=== PATIENT | female | born 1990 | race African-American/Black ===

== ENCOUNTER 2018-07-03 13:56 | Inpatient (IN) | payer OTHER ==
[2018-07-03] MEDS ORDERED: NS 0.9% 1000 ML* 2,000 ML IV ONE (14:16)
[2018-07-03] MEDS ORDERED: Ondansetron INJ* 2 MG/ML VIAL IV ONE (14:16)
[2018-07-03] MEDS ORDERED: Diphenoxylat/Atrop 2.5-0.025M* 1 TAB PO ONE (14:18)
--- NOTE | 2018-07-03 14:39 | ED ---
Abdominal Pain/Female - HPI Summary HPI Summary: This patient is a 28 year old F presenting to [facility] accompanied by her friend with a chief complaint of 9/10 upper abd pain since 07/02/18. She endorses N/V/D, with her stool smelling of bile, fever, WAY, lethargy, wealkness, and fatigue. She endorses 1x episode of emesis last night, and that she was able to drink Gatorade and water. She denies hematochezia. She notes her LMP was distant, as she is on continuous Nuvaring control. She denies PMHx ulcers. - History of Current Complaint Chief Complaint: EDFever Stated Complaint: DIARRHEA/FEVER/ Time Seen by Provider: 07/03/18 14:11 Hx Obtained From: Patient Hx Last Menstrual Period: 01/14/16 Continuous control ?: No Onset/Duration: Lasting Hours, Still Present Timing: Constant Severity Initially: Moderate Severity Currently: Severe Pain Intensity: 9 Pain Scale Used: 0-10 Numeric Location: Epigastric Radiates: No Aggravating Factor(s): Nothing Alleviating Factor(s): Nothing Associated Signs and Symptoms: Positive: Fever - 101.2 in ED, Nausea, Vomiting, Diarrhea. Negative: Blood in Stool Allergies/Adverse Reactions: Allergies Allergy/AdvReac Type Severity Reaction Status Date / Time No Known Allergies Allergy Verified 07/03/18 14:01 Home Medications: Home Medications Biotin [Biotin Gummies] 1,000 mcg PO DAILY 07/03/18 [History Confirmed 07/03/18] L.acidoph,Paracasei, B.lactis [Probiotic] 1 each PO DAILY 07/03/18 [History Confirmed 07/03/18] Multivitamin [Daily Multiple Vitamins] 1 tab PO DAILY 07/03/18 [History Confirmed 07/03/18] [place]-3 Fatty Acids/Fish Oil [Fish Oil 1,000 mg Capsule] 1 each PO DAILY [History Confirmed 07/03/18] PMH/Surg Hx/FS Hx/Imm Hx Endocrine/Hematology History: Denies: Hx Diabetes, Hx Thyroid Disease Cardiovascular History: Denies: Hx Hypertension Respiratory History: Denies: Hx Asthma, Hx Chronic Obstructive Pulmonary Disease (COPD) GI History: Denies: Hx Ulcer History: Denies: Hx Dialysis Sensory History: Denies: Hx Legally Blind, Hx Deafness Opthamlomology History: Denies: Hx Legally Blind EENT History: Denies: Hx Deafness Neurological History: Denies: Hx Dementia Psychiatric History: Reports: Hx Anxiety, Hx Depression - Immunization History Date of Tetanus Vaccine: within 8 years per pt Immunizations Up to Date: Yes Infectious Disease History: No Infectious Disease History: Reports: Hx Shingles, Traveled Outside the [place] in Last 30 Days [facility] Denies: Hx Hepatitis, Hx Human Immunodeficiency Virus (HIV), History Other Infectious Disease - Family History Known Family History: Positive: Other - colon cancer, ulcers - Social History Occupation: Student Lives: Dormitory/Roommates Alcohol Use: None Substance Use Type: Reports: None Smoking Status (MU): Never Smoked Tobacco Review of Systems Positive: Fever, Fatigue Positive: Abdominal Pain, Vomiting, Diarrhea, Nausea. Negative: Other - blood in stool Positive: no symptoms reported Positive: Headache, Weakness All Other Systems Reviewed And Are Negative: Yes Physical Exam - Summary Physical Exam Summary: Appearance: Well-appearing, Well-nourished, lying in bed comfortably Skin: Warm, dry, no obvious rash Eyes: sclera anicteric, no conjunctival pallor ENT: mucous membranes moist, pharynx appears normal Neck: Supple, nontender Respiratory: Clear to auscultation, no signs of respiratory distress Cardiovascular: Normal S1, S2. No murmurs. Normal distal pulses in tibial and radial bilaterally. Abdomen: Soft, upper abd tenderness without guarding or rebound, normal active bowel sounds present Musculoskeletal: Normal, Strength/ROM Intact Neurological: A&Ox3, awake and alert, mentation is normal, speech is fluent and appropriate Psychiatric: affect is normal, does not appear anxious or depressed Triage Information Reviewed: Yes Vital Signs On Initial Exam: Initial Vitals Temp Pulse Resp BP Pulse Ox 101.2 F 101 15 106/52 98 07/03/18 13:59 07/03/18 13:59 07/03/18 13:59 07/03/18 13:59 07/03/18 13:59 Vital Signs Reviewed: Yes Diagnostics - Vital Signs Vital Signs Temp Pulse Resp BP Pulse Ox 07/03/18 13:59 101.2 F 101 15 106/52 98 - Laboratory Result Diagrams: 07/06/18 06:44 07/06/18 06:44 Lab Statement: Any lab studies that have been ordered have been reviewed, and results considered in the medical decision making process. - CT A/P CT Interpretation: Positive (See Comments) CT Interpretation Completed By: Radiologist - Findings of acute cholecystitis which can be confirmed with ultrasound. Dr. Bower has reviewed this report. Re-Evaluation - Re-Evaluation First Eval Re-Evaluation Time: 17:41 Change: Improved Comment: Feels slightly better but not much, had diarrhea stool with a little blood in it. Abdominal Pain Fem Course/Dx - Course Course Of Treatment: A 28-year-old F presents to the ED with a CC of 9/10 epigastric abd pain for 1 day. (+) N/V/D, WAY, fever, fatigue, lethargy, weakness. (-) hematochezia. LMP distant due to constant control, no PMHx ulcers, FHx ulcers. Pt was able to drink Gatorade and water. A CT A/P reveals findings of acute cholecystitis which can be confirmed with ultrasound. In the ED course, pt was given nl saline, lomotil, and zofran, morphine, and KCl. - Diagnoses Provider Diagnoses: Gastroenteritis, Cholecystitis - Provider Notifications Discussed Care Of Patient With: Adonis Wen Time Discussed With Above Provider: 19:44 Instructed by Provider To: Other - accepts admission Discharge - Sign-Out/Discharge Documenting (check all that apply): Patient Departure - admit - Discharge Plan Condition: Fair Disposition: ADMITTED TO [facility] - Billing Disposition and Condition Condition: FAIR Disposition: Admitted to [facility] - Attestation Statements Document Initiated by Brock: Yes Documenting Scribe: Román Aponte Provider For Whom Brock is Documenting (Include Credential): Dr. Anam Bower MD Scribe Attestation: Román Underwood scribed for Dr. Anam Bower MD on 07/06/18 at 1143. Scribe Documentation Reviewed: Yes Provider Attestation: The documentation as recorded by the Román wilkinson accurately reflects the service I personally performed and the decisions made by me, Dr. Anam Bower MD
[2018-07-03 14:57] LABS: ABS Basophils 0 10^3/ul (0-0.2); ABS Eosinophils 0 10^3/ul (0-0.6); ABS Lymphocytes 0.9 10^3/ul (1.0-4.8); ABS Monocytes 0.2 10^3/ul (0-0.8); ABS Neutrophils 4.7 10^3/ul (1.5-7.7); ABS Nucleated RBC 0 10^3/ul; Eosinophil % 0 % (0-6); Hematocrit 40 % (35-47); Lymphocyte % 15.8 % (25-47); Mean Corpuscular HGB Conc 35 g/dl (31-36); Mean Corpuscular Hemoglobin 28 pg (27-31); Mean Corpuscular Volume 79 fL (80-97); Mean Platelet Volume 9.5 um3 (7.4-10.4); Nucleated Red Blood Cells % 0.1; Platelet Count 156 10^3/ul (150-450); Red Blood Count 5.07 10^6/ul (4.00-5.40); Red Cell Distribution Width 12 % (10.5-15); White Blood Count 5.9 10^3/ul (3.5-10.8)
[2018-07-03 15:26] LABS: EGFR Non-African American 83.6 (>60)
[2018-07-03] MEDS ORDERED: Morphine VIAL* 4 MG/ML VIAL (1 ml vial) IV ONE ×2 (15:54→19:39)
[2018-07-03] MEDS ORDERED: Potassium Chlor TAB* 20 MEQ TAB.ER PO ONE ×2 (16:07→23:05)
[2018-07-03] MEDS ORDERED: Acetaminophen TAB* 325 MG PO ONE (16:18)
[2018-07-03] MEDS ORDERED: Morphine INJ* 2 MG/ML 1 ML SYRINGE (TWO MG - NEW SYRINGE VERSION) ONE (16:29)
[2018-07-03] MEDS: Morphine INJ* 2 MG/ML 1 ML SYRINGE (TWO MG - NEW SYRINGE VERSION) IV ONE ×2 (16:36→20:00)
[2018-07-03] MEDS ORDERED: Iohexol 300* (CONTRAST) 10 ML SDV IV ONE (20:10)
--- NOTE | 2018-07-03 21:36 | RAD ---
EXAM: CT Abdomen and Pelvis With Intravenous Contrast CLINICAL HISTORY: 28 years old, female; Pain; Abdominal pain; Epigastric; Additional info: Upper abd pain/tenderness, diarrhea TECHNIQUE: Axial computed tomography images of the abdomen and pelvis with intravenous contrast. All CT scans at this facility use at least one of these dose optimization techniques: automated exposure control; mA and/or kV adjustment per patient size (includes targeted exams where dose is matched to clinical indication); or iterative reconstruction. Coronal and sagittal reformatted images were created and reviewed. CONTRAST: 79 mL of OMNIPAQUE 300 administered intravenously. COMPARISON: No relevant prior studies available. FINDINGS: Lung bases: Normal. No mass. No consolidation. ABDOMEN: Liver: Normal. No masses. Portal and hepatic veins are patent. Gallbladder and bile ducts: Circumferentially thickwalled gallbladder with associated moderate pericholecystic stranding. No radiopaque calculi. Pancreas: Normal. No mass. No ductal dilation. Spleen: Normal. No splenomegaly. Adrenals: Normal. No mass. Kidneys and ureters: Normal. No solid mass. Stomach and bowel: Incompletely distended grossly normal stomach. Normal caliber small bowel. No colonic masses or segmental wall thickening. PELVIS: Appendix: No dilation or periappendiceal inflammation. Bladder: The bladder is decompressed but otherwise normal. Reproductive: Uterus and ovaries are normal. ABDOMEN and PELVIS: Intraperitoneal space: Normal. No pneumoperitoneum. No ascities. Bones/joints: No fractures. No suspicious bone lesions. Soft tissues: Normal. No hernias. Vasculature: Normal caliber aorta with no evidence of dissection or rupture. Patent IVC. Lymph nodes: Normal. No enlarged lymph nodes. IMPRESSION: Findings of acute cholecystitis which can be confirmed with ultrasound.
[2018-07-03 23:39] LABS: EGFR Non-African American 78.1 (>60)
--- NOTE | 2018-07-04 00:05 | RAD ---
EXAM: US Abdomen Limited, Right Upper Quadrant CLINICAL HISTORY: 28 years old, female; Pain; Abdominal pain; Epigastric; Additional info: Gall bladder TECHNIQUE: Real-time ultrasound of the right upper quadrant with image documentation. COMPARISON: A/P W CT ABD/PEL W 07/03/2018 9:11 PM FINDINGS: Liver: Hyperechogenicity of the hepatic portal triads. No focal liver lesions. Normal hepato-pedal portal vein flow. No intrahepatic bile duct dilation. Gallbladder: Markedly thick walled gallbladder measuring up to 0.8 cm. Associated pericholecystic fluid. Layering sludge with no gallstones. No sonographic Reddy's sign. Common bile duct: CBD measures 0.3 cm. Pancreas: Pancreatic head through proximal tail are well visualized showing no focal lesions or main ductal dilation. Distal tail is shadowed by overlying bowel gas. Right kidney: Right kidney measures 10.8 x 5.1 x 4.0 cm (115 cc). Hyperechoic parenchyma. No solid cortical lesions, calculi, or pelvocaliectasis. IMPRESSION: 1. Findings suggesting hepatitis which would correlate with the abnormal gallbladder findings. 2. Renal parenchymal disease.
[2018-07-04] MEDS ORDERED: fentaNYL* 50 MCG/ML 2 ML VIAL (100 MCG VIAL) IV SLOW PU ONE (00:31)
[2018-07-04] MEDS ORDERED: Piperacillin/Tazobac ADVAN(*) 3.375 GM in NS 0.9% 100 ML* 100 ML IVPB ONE (00:31)
--- NOTE | 2018-07-04 00:36 | ED ---
Progress - Progress Note Progress Note: Behzad refused to admit the patient because she is a surgical case due to acute cholecystitis. US revealed sonographic finding of acute cholecystitis. Epigastric tenderness. Given the fact that the patient has nausea, vomiting, diarrhea, and gastroenteritis. Re-Evaluation - Re-Evaluation First Eval Re-Evaluation Time: 17:41 Change: Improved Comment: Feels slightly better but not much, had diarrhea stool with a little blood in it. Course/Dx - Course Course Of Treatment: Behzad refused to admit the patient because she is a surgical case due to acute cholecystitis. US revealed sonographic finding of acute cholecystitis. Epigastric tenderness. Given the fact that the patient has nausea, vomiting, diarrhea, and gastroenteritis. Consult with Dr. Barnes ( surgery) at 0034. He agrees to admit pt for surgery. - Diagnoses Provider Diagnoses: Gastroenteritis, Cholecystitis - Provider Notifications Discussed Care Of Patient With: Justin Barnes Time Discussed With Above Provider: 00:34 Instructed by Provider To: Other - Consult with Dr. Barnes (surgery) at 0034. He agrees to admit pt for surgery. Discharge - Sign-Out/Discharge Documenting (check all that apply): Patient Departure - Admit to [facility] - Discharge Plan Condition: Fair Disposition: ADMITTED TO [facility] Referrals: No Primary Care Phys,NOPCP [Primary Care Provider] - - Attestation Statements Document Initiated by Scribe: Yes Documenting Scribe: Marie Parker Provider For Whom Scribe is Documenting (Include Credential): Masoud Aguayo MD Scribe Attestation: IMarie, scribed for Masoud Aguayo MD on 07/04/18 at 0039.
[2018-07-04] MEDS: Ketorolac INJ* 30 MG/ML 1 ML VIAL IV PRN ×2 (02:36→08:36)
[2018-07-04] MEDS ORDERED: Acetaminophen TAB* 325 MG PO PRN (02:58)
[2018-07-04] MEDS: HYDROmorphone INJ1* 1 MG/ML SYRINGE IV PRN ×4 (03:17→22:04)
[2018-07-04] MEDS ORDERED: ZOSYN 3.375 GM x ONE DOSE over 30 miuntes IVPB ×2 (03:30)
[2018-07-04 03:40] LABS: ABS Basophils 0 10^3/ul (0-0.2); ABS Eosinophils 0 10^3/ul (0-0.6); ABS Monocytes 0.2 10^3/ul (0-0.8); ABS Neutrophils 6.7 10^3/ul (1.5-7.7); ABS Nucleated RBC 0 10^3/ul; Eosinophil % 0.3 % (0-6); Hematocrit 38 % (35-47); Hemoglobin 13.2 g/dl (12.0-16.0); Lymphocyte % 12.2 % (25-47); Mean Corpuscular HGB Conc 35 g/dl (31-36); Mean Corpuscular Hemoglobin 28 pg (27-31); Mean Corpuscular Volume 80 fL (80-97); Mean Platelet Volume 9.2 um3 (7.4-10.4); Nucleated Red Blood Cells % 0.3; Platelet Count 137 10^3/ul (150-450); Red Blood Count 4.77 10^6/ul (4.00-5.40); Red Cell Distribution Width 12 % (10.5-15)
[2018-07-04 03:57] LABS: EGFR Non-African American 77.1 (>60)
--- NOTE | 2018-07-04 04:44 | HP ---
H&P (Free Text) History and Physical: PCP: [facility] Date/Time: 07/04/2018 0330 CC: abdominal pain, fever HPI: Ms Reyes is a 28YO female HX depression who reports changing to a 'raw' diet a week ago. Midday she experienced the gradual onset of abdominal 'gassiness' progressing to generalized abdominal pain associated with fever 102.4F and mucousy diarrhea which she noticed had regan blood mixed with it while in the ED today. Stools began as loose and have become more watery. She states she did have an episode of abdominal cramping a few months ago she felt was a side effect of an SSRI whose name she cannot recall and it did resolve after stopping the medication. Additionally, she reports having recurrent nausea and diarrhea as a child associated with greasy foods, but this improved into adulthood. She did spend a [place] [facility] [place] [facility] in the [facility] returning June 17, but has had no known sick contacts. 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 PMedHx depression Ambulatory Orders Biotin [Biotin Gummies] 1,000 mcg PO DAILY 07/03/18 L.acidoph,Paracasei, B.lactis [Probiotic] 1 each PO DAILY 07/03/18 Multivitamin [Daily Multiple Vitamins] 1 tab PO DAILY 07/03/18 [place]-3 Fatty Acids/Fish Oil [Fish Oil 1,000 mg Capsule] 1 each PO DAILY Nuvaring for contraception Allergies No Known Allergies Allergy (Verified 07/03/18 14:01) PSurgHx none SocHx: trivial smoking HX none currently, 3-4 alcoholic drinks months, no recreational drugs; [employer] student of [employer]; lives in a house with 3 roommates; full code status FamHx: Mother: alive at 56YO with "colonic ulcers" (? inflammatory bowel); Father: alive at 60YO with prostate CA; first 1/2 sister: alive with multiple sclerosis; second 1/2 sister: alive with eczema; only full sister: alive with uterine cysts; only brother: 2nd suicide ROS: as above, otherwise reviewed and all were negative vitals: Vital Signs Temp 37.8 C 07/04/18 03:36 Pulse 95 07/04/18 03:36 Resp 24 07/04/18 03:36 BP 100/53 07/04/18 03:36 Pulse Ox 97 07/04/18 03:36 Intake & Output 07/03/18 07/03/18 07/04/18 11:59 23:59 11:59 Intake Total 2099 Balance 2099 Weight 58.967 kg 58.967 kg Intake: IV Fluids 2099 Constitutional: NAD, normally developed, well-nourished black female HEENM: atraumatic; sclera/conjunctiva: anicteric/clear; hearing: clinically intact; oropharynx: clear, mucosa moist Neck: soft tissue: no nuchal rigidity, non-tender; thyroid: normal Pulmonary: clear to auscultation bilaterally, good aeration, no accessory muscle use CV: RR/RR, normal S1S2, no carotid bruit, no jugular venous distention, 2+ B DP/ PT, no edema Abdominal: soft, non-distended, moderately tender primarily in the RUQ and R lateral aspect with voluntary guarding but no rebound/rigidity, hyperactive bowel sounds, clinically gall bladder is ballotable and tender, no costovertebral angle tenderness Musculoskeletal: general: grossly intact, non tender Integumental: normal appearance and texture of exposed skin Psychiatric orientation: AA&O to PPTS affect: fatigued to lethargic mood: pleasant & cooperative eye contact: fair to poor content: reliable memory: intact responses: timely insight: good Testing: Lab Results 07/03/18 07/03/18 07/03/18 Range/Units 14:46 14:46 14:46 WBC 5.9 (3.5-10.8) 10^3/ul RBC 5.07 (4.00-5.40) 10^6/ul Hgb 14.0 (12.0-16.0) g/dl Hct 40 (35-47) % MCV 79 L (80-97) fL MCH 28 (27-31) pg MCHC 35 (31-36) g/dl RDW 12 (10.5-15) % Plt Count 156 (150-450) 10^3/ul MPV 9.5 (7.4-10.4) um3 Neut % (Auto) 80.0 (38-83) % Lymph % (Auto) 15.8 L (25-47) % [place] % (Auto) 3.8 (0-7) % Eos % (Auto) 0 (0-6) % Baso % (Auto) 0.4 (0-2) % Absolute Neuts (auto) 4.7 (1.5-7.7) 10^3/ul Absolute Lymphs (auto) 0.9 L (1.0-4.8) 10^3/ul Absolute Monos (auto) 0.2 (0-0.8) 10^3/ul Absolute Eos (auto) 0 (0-0.6) 10^3/ul Absolute Basos (auto) 0 (0-0.2) 10^3/ul Absolute Nucleated RBC 0 10^3/ul Nucleated RBC % 0.1 ESR Sodium 132 L (135-145) mmol/L Potassium 3.1 L (3.5-5.0) mmol/L Chloride 103 (101-111) mmol/L Carbon Dioxide 20 L (22-32) mmol/L Anion Gap 9 (2-11) mmol/L BUN 9 (6-24) mg/dL Creatinine 0.82 (0.51-0.95) mg/dL Est GFR ( Amer) 101.2 (>60) Est GFR (Non-Af Amer) 83.6 (>60) BUN/Creatinine Ratio 11.0 (8-20) Glucose 119 H (70-100) mg/dL Lactic Acid (0.5-2.0) mmol/L Calcium 8.5 L (8.6-10.3) mg/dL Total Bilirubin (0.2-1.0) mg/dL Direct Bilirubin Indirect Bilirubin AST (13-39) U/L ALT (7-52) U/L Alkaline Phosphatase (34-104) U/L C-Reactive Protein (<8.01) mg/L Total Protein (6.4-8.9) g/dL Albumin (3.2-5.2) g/dL Globulin (2-4) g/dL Albumin/Globulin Ratio (1-3) Amylase (29-103) U/L Lipase (11.0-82.0) U/L Procalcitonin 0.1 (<0.6) ng/mL Beta HCG, Quant < 0.60 mIU/mL 07/03/18 07/04/18 07/04/18 Range/Units 23:09 03:31 03:31 WBC 8.0 (3.5-10.8) 10^3/ul RBC 4.77 (4.00-5.40) 10^6/ul Hgb 13.2 (12.0-16.0) g/dl Hct 38 (35-47) % MCV 80 (80-97) fL MCH 28 (27-31) pg MCHC 35 (31-36) g/dl RDW 12 (10.5-15) % Plt Count 137 L (150-450) 10^3/ul MPV 9.2 (7.4-10.4) um3 Neut % (Auto) 84.2 H (38-83) % Lymph % (Auto) 12.2 L (25-47) % [place] % (Auto) 2.9 (0-7) % Eos % (Auto) 0.3 (0-6) % Baso % (Auto) 0.4 (0-2) % Absolute Neuts (auto) 6.7 (1.5-7.7) 10^3/ul Absolute Lymphs (auto) 1.0 (1.0-4.8) 10^3/ul Absolute Monos (auto) 0.2 (0-0.8) 10^3/ul Absolute Eos (auto) 0 (0-0.6) 10^3/ul Absolute Basos (auto) 0 (0-0.2) 10^3/ul Absolute Nucleated RBC 0 10^3/ul Nucleated RBC % 0.3 ESR Pending Sodium 133 L 132 L (135-145) mmol/L Potassium 3.7 3.6 (3.5-5.0) mmol/L Chloride 107 106 (101-111) mmol/L Carbon Dioxide 18 L 17 L (22-32) mmol/L Anion Gap 8 9 (2-11) mmol/L BUN 7 8 (6-24) mg/dL Creatinine 0.87 0.88 (0.51-0.95) mg/dL Est GFR ( Amer) 94.5 93.3 (>60) Est GFR (Non-Af Amer) 78.1 77.1 (>60) BUN/Creatinine Ratio 8.0 9.1 (8-20) Glucose 87 84 (70-100) mg/dL Lactic Acid (0.5-2.0) mmol/L Calcium 8.0 L 7.9 L (8.6-10.3) mg/dL Total Bilirubin 0.50 Pending (0.2-1.0) mg/dL Direct Bilirubin Pending Indirect Bilirubin Pending AST 19 Pending (13-39) U/L ALT 17 Pending (7-52) U/L Alkaline Phosphatase 32 L Pending (34-104) U/L C-Reactive Protein 122.52 H Pending (<8.01) mg/L Total Protein 6.1 L Pending (6.4-8.9) g/dL Albumin 3.4 Pending (3.2-5.2) g/dL Globulin 2.7 Pending (2-4) g/dL Albumin/Globulin Ratio 1.3 Pending (1-3) Amylase 44 (29-103) U/L Lipase 10 L (11.0-82.0) U/L Procalcitonin (<0.6) ng/mL Beta HCG, Quant mIU/mL 07/04/18 Range/Units 03:31 WBC (3.5-10.8) 10^3/ul RBC (4.00-5.40) 10^6/ul Hgb (12.0-16.0) g/dl Hct (35-47) % MCV (80-97) fL MCH (27-31) pg MCHC (31-36) g/dl RDW (10.5-15) % Plt Count (150-450) 10^3/ul MPV (7.4-10.4) um3 Neut % (Auto) (38-83) % Lymph % (Auto) (25-47) % [place] % (Auto) (0-7) % Eos % (Auto) (0-6) % Baso % (Auto) (0-2) % Absolute Neuts (auto) (1.5-7.7) 10^3/ul Absolute Lymphs (auto) (1.0-4.8) 10^3/ul Absolute Monos (auto) (0-0.8) 10^3/ul Absolute Eos (auto) (0-0.6) 10^3/ul Absolute Basos (auto) (0-0.2) 10^3/ul Absolute Nucleated RBC 10^3/ul Nucleated RBC % ESR Sodium (135-145) mmol/L Potassium (3.5-5.0) mmol/L Chloride (101-111) mmol/L Carbon Dioxide (22-32) mmol/L Anion Gap (2-11) mmol/L BUN (6-24) mg/dL Creatinine (0.51-0.95) mg/dL Est GFR ( Amer) (>60) Est GFR (Non-Af Amer) (>60) BUN/Creatinine Ratio (8-20) Glucose (70-100) mg/dL Lactic Acid 0.4 L (0.5-2.0) mmol/L Calcium (8.6-10.3) mg/dL Total Bilirubin (0.2-1.0) mg/dL Direct Bilirubin Indirect Bilirubin AST (13-39) U/L ALT (7-52) U/L Alkaline Phosphatase (34-104) U/L C-Reactive Protein (<8.01) mg/L Total Protein (6.4-8.9) g/dL Albumin (3.2-5.2) g/dL Globulin (2-4) g/dL Albumin/Globulin Ratio (1-3) Amylase (29-103) U/L Lipase (11.0-82.0) U/L Procalcitonin (<0.6) ng/mL Beta HCG, Quant mIU/mL CT abd/pel W, personally reviewed: IMPRESSION: Findings of acute cholecystitis which can be confirmed with ultrasound. US RUQ: Patient Name: IMPRESSION: 1. Findings suggesting hepatitis which would correlate with the abnormal gallbladder findings. 2. Renal parenchymal disease. Impression: 28F HX depression presenting with atypical abdominal pain, fever, bloody/mucousy stools with CT abd/pel read as acute cholecystitis & RUQ US read as hepatitis w/o confirming finding in labs who has recently travelled to the [facility] and has frequent exposure to potential zoonotic pathogens. As she is septic from an as yet uncertain abdominal process, further monitoring in the ICU is warranted until her disease process can be adequately characterized. Primary differential diagnosis includes acalculous cholecystitis, initial presentation of inflammatory bowel disease, helminthic/amoebic infection, and zoonotic infections. DIAGNOSIS & PLAN Primary sepsis (fever, tachycardia, tachypnea) 2nd unclear abdominal process : primary dDX acalculous cholecystitis vs initial presentation of IBD vs other abdominal infection : check hepatitis profile : consult GI in AM for consideration of colonoscopy to evaluate for IBD : consult infectious disease when available : IVFs : continue IV piperacillin/tazobactam : obtain blood CXs : obtain urinalysis reflexed to CX : obtain stool for ova & parasite analysis : NPO x/ meds w/ sips water : supportive care abnormal R kidney on RUQ US : normal renal function : obtain formal renal US : consider nephrology consultation pending above Secondary depression : no current meds, no acute issues Admission Rational: Inpatient as without the above interventions the risk of impending adverse outcome is unacceptably high; inappropriate for the outpatient setting DVTp: CORINE Code Status: full Critical Care time: 75minutes with >50% spent at the bedside obtaining a history , performing the examination, advising of diagnosis & treatment options along with risks/benefits/reasoning; remainder spent discussing with Orlando Bower MD ED, reviewing with Missael Barnes MD surgery via phone, reviewing labs and radiology exams, recording documentation
[2018-07-04] MEDS: Ondansetron INJ* 2 MG/ML VIAL IV PRN ×2 (05:09→16:30)
[2018-07-04] MEDS ORDERED: ZOSYN 3.375 GM Q8H per EXTENDED INFUSION IVPB SCH ×2 (08:00)
[2018-07-04 09:54] LABS: Urine Appearance Clear; Urine Blood Negative (Negative); Urine Color Yellow; Urine Ketones 2+ (Negative); Urine Protein 1+(30 mg/dL) (Negative); Urine Red Blood Cell Trace(0-2/hpf) (Absent); Urine Specific Gravity 1.047 (1.010-1.030); Urine Urobilinogen Negative (Negative); Urine White Blood Cell Trace(0-5/hpf) (Absent)
[2018-07-04] MEDS: Enoxaparin(*) 40 MG/0.4 ML SYR SUBCUT SCH (10:30)
--- NOTE | 2018-07-04 10:57 | RAD ---
Indication: Abnormal right kidney on right upper quadrant ultrasound. Real-time sonography of the kidneys was performed. The left kidney measures 11.6 x 4.9 x 4.9 cm. No hydronephrosis is noted. IMPRESSION: Unremarkable left kidney.
--- NOTE | 2018-07-04 11:13 | RAD ---
Indication: Dyspnea. 2 views of the chest and straight no mediastinal shift. Heart is of normal size and configuration. Lung casper are clear. IMPRESSION: No active cardiopulmonary disease is noted.
[2018-07-04] MEDS: Ciprofloxacin 400MG IVPREMIX(* 400 MG/200 ML BAG IVPB SCH (15:10)
--- NOTE | 2018-07-04 17:09 | CONS ---
CC: [facility]; [facility] * CONSULTATION REPORT: DATE OF CONSULT: 07/04/18 REASON FOR CONSULT: Abdominal pain and copious diarrhea. HISTORY OF PRESENT ILLNESS: Ms. 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 She had over 30 loose bowel movements, which she described as brown with a small amount of blood early yesterday morning. She had only one episode of vomiting and this was more a retching because she had an empty stomach. She had no fevers, shakes or chills. After the diarrhea had been present, she developed abdominal pain mainly on the right upper and right lower side of her abdomen, which became more severe and she described as crampy. She had no back discomfort. She noted no jaundice. The diarrhea and the pain persisted, she presented initially to the urgent care center yesterday and was transferred to the emergency room for further evaluation last night. When seen in the emergency room, initially she had a temperature of 101, which went up to 103 at its max. She was hemodynamically stable however. She was noted to have tenderness in the epigastrium, right upper and right lower abdomen. There was no noted peritonitis. Laboratory workup included a white blood cell count of 5.9, without bandemia. Her bilirubin, AST and ALT were normal. Her lactic acid was 31 and the C- reactive protein initially of 122. She had a normal lactic acid. Carbon dioxide was low at 20 and had decreased to 17 overnight. Lipase was unremarkable. Urinalysis was also unremarkable. She underwent a CAT scan of her abdomen and pelvis. I did review these images. This showed edematous gallbladder wall with some pericholecystic fluid, but no gallstones. These findings were worrisome for acute cholecystitis and ultrasound was recommended. There also noted was some free intraabdominal fluid. No other acute findings were noted. Ultrasound was also performed. This showed gallbladder wall thickening up to 0.8 cm, some pericholecystic fluid and sludge within the gallbladder. No gallstones. There was no sonographic Reddy's sign. Also noted was hypergenicity of the hepatic portal triads consistent with edema, which is considered nonspecific, but not usually seen with the acute cholecystitis. She was admitted to the hospitalist service in the intensive care unit due to her fever and dehydration and started on IV Zosyn. Surgical consultation has been obtained. The patient did spend almost a month in the [facility]] on a veterinary rotation recently. She does state that she has been trying to eat more fruits and vegetables and a healthier diet in the last several weeks. No one else in her class, family, or roommates have been ill recently. PAST MEDICAL HISTORY: Depression. PAST SURGICAL HISTORY: None. MEDICATIONS: Includes: 1. Biotin. 2. Probiotics. 3. Multivitamins. 4. Ama-3. 5. She has a NuvaRing for contraception. ALLERGIES: She has no known drug allergies. SOCIAL HISTORY: The patient has a history of trivial smoking. She drinks about 3 to 4 alcoholic drinks per month. No recreational drugs. She lives in a house with 3 roommates. REVIEW OF SYSTEMS: Cerebrovascular: No dizziness or visual disturbances. Cardiovascular: No chest pain or shortness of breath. Pulmonary: No wheezing or hemoptysis. GI: As above. : No urgency or hematuria. PHYSICAL EXAM: Temperature 99.4, heart rate 87, blood pressure 99/56. General : She is a slender, well-developed, well-nourished female. She is awake, alert , and conversive and quite pleasant, does appear to be ill. HEENT: Her sclerae are anicteric. Her oral mucosa was slightly dry. Lungs were clear to auscultation with normal respiratory effort. Heart was regular rate and rhythm without murmurs, rubs, or gallops. Her abdomen is soft and slightly distended. No prior surgical incisions or hernias. She had bowel sounds that were present, some of them which were hyperactive, but not high-pitched or tinkling. She has tenderness in the epigastric right mid and right lower abdomen with some voluntary guarding, but no generalized peritoneal irritation or rigidity. Extremities show no cyanosis or edema. Psychiatric: She is awake, alert and oriented x3. DIAGNOSTIC STUDIES/LAB DATA: Preliminary stool cultures show C. diff negative. Fecal lactoferrin is positive by immunoassay. Stool was positive for occult blood. Other studies are pending. IMPRESSION: Abdominal pain with copious diarrhea over the past 36 to 48 hours. She initially developed crampy, gassy pain, and has had large amounts of watery diarrhea with only one episode of nausea with vomiting. White blood cell count is normal and her liver transaminases and bilirubin are also normal. She has an elevated C-reactive protein. Imaging studies as above do show edematous gallbladder wall with some gallbladder sludge and pericholecystic fluid, also some edema in the liver. Fecal lactoferrin is positive. Her constellation of symptoms are not consistent with an acute calculous cholecystitis. This started with abdominal crampy, gassy discomfort with the copious amount of diarrhea, which would be most unusual as a presentation for cholecystitis. I think the findings on the ultrasound and CAT scan of the gallbladder are secondary inflammation related to either a viral or bacterial gastrointestinal type of illness. For this reason, I would not recommend consideration of cholecystectomy at this point, but recommend awaiting stool cultures. She has been started on IV Zosyn as well. For now, I would continue IV hydration. Gastroenterology consultation is to be obtained as well today and I will await their opinion. I discussed all of this with her today, and explained the plan of care today, and for now, we will continue to observe her closely. Thank you very much for this consultation. [id number]/[facility] #: [id number] RUSS
--- NOTE | 2018-07-04 18:23 | CONS ---
CONSULTATION REPORT: DATE OF CONSULT: 07/04/18 REASON FOR CONSULT: Abdominal discomfort, fever, loose stool. 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 This became more progressive in nature and then on 07/03/18, she presented to the emergency room after she noticed a little bit of streaking of blood in her stool. She admits that the stool had been loose since . Denies any regan nausea or vomiting. No dysphagia or odynophagia. She has exposure to many animals including within the last month of horses including their fecal matter, cats, dogs, and then was recently in [place] and [facility], where she did have exposure to other animals including monkeys, snakes, and other [facility] wildlife. She did drink water in the [facility]. There was both municipal water and well water, but she states that they primarily used water from the municipal system in [facility]. No other sick contacts back in [facility] or with her roommates here in [place]. She states that she was starting to transition, but has not completely transitioned to a raw diet over the last week. She has still been consuming protein in the animal variety recently. Today, she states that her abdominal pain and the fever and rigors are slightly better. She denies any regan blood in the stool at this time. She denies any weight loss or gain. No regan diarrhea or constipation prior to this episode and never had an episode like this in the past. No changes in her medications. The remainder of the 14-point review of systems was grossly negative. PAST MEDICAL HISTORY: Includes reported depression. PAST SURGICAL HISTORY: None. MEDICATIONS: Ambulatory medications include: 1. Biotin. 2. Probiotic. 3. Multivitamin. 4. Fish oil. 5. NuvaRing. ALLERGIES: No known drug allergies. FAMILY HISTORY: Her mother had history of diverticulosis. No regan inflammatory bowel disease, GI cancers in the family. Her father had prostate cancer. She has got a few family members that do have autoimmune conditions including multiple sclerosis and eczema. SOCIAL HISTORY: Denies frequent tobacco. Social alcohol use. No recreational drugs. She is a [employer] veterinary student, lives with 3 roommates, who have not had any illness. REVIEW OF SYSTEMS: A 14-point review of systems was negative except for as described in the HPI. PHYSICAL EXAM: Vital Signs: At this time, blood pressure is 110/68, O2 sat is 99% on room air, respiratory rate is 16, heart rate is 77, and she is 98.2 degrees Fahrenheit. In general, she is alert and oriented, in no acute distress. HEENT: Atraumatic, normocephalic. Pupils equal, round, and reactive to light. Extraocular movements intact. The conjunctivae are pink. The sclerae are anicteric. Neck is supple. Mild tender adenopathy on the right cervical chain. No gross thyromegaly. Cardiovascular: Regular rate and rhythm. S1 and S2. Respiratory: Clear to auscultation bilaterally. Abdomen is soft, mild tenderness in the epigastric region and right upper quadrant. Upon deep inspiration, there is increased pain in the right upper quadrant under the ribcage. Bowel sounds are positive. There is minimal guarding. No rebound tenderness. Extremities: No clubbing, no cyanosis, no edema. Skin is without rash. Neuro exam is nonfocal. Psych Exam: Appropriate mood and affect. DIAGNOSTIC STUDIES/LAB DATA: WBC count is 8.0, hemoglobin 13.2, platelet count is 137. Sodium 132, potassium 3.6, chloride is 106, CO2 is 17, creatinine 0.88 , lactic acid is 0.4, calcium is 7.9. Total bilirubin 0.60, AST is 19, ALT is 15, alkaline phosphatase 31. CRP is 144. Total protein is 5.9, lipase is 10. Procalcitonin is 0.3. Total CK is 75. Urine is without leukocyte esterase or gross wbc's. She had a stool culture that was positive for salmonella that resulted at 1325 on 07/04/18. She had a gallbladder ultrasound on 07/03/18 that showed thickening of the gallbladder wall with pericholecystic fluid, layering sludge, and also hyperechogenicity of the hepatic portal triad. She had an abdominal CT that was done on 07/03/18, which per the report showed findings possible for acute cholecystitis. ASSESSMENT AND PLAN: This is a 28-year-old female with salmonella enteritis. 1. She has been on piperacillin and tazobactam. At this point, I would transition to an oral fluoroquinolone given that she is hospitalized and meets more severe criteria. Would recommend supportive care with IV fluids and analgesics and antipyretics as necessary. Suspect this illness will be self- resolving. 2. Gallbladder wall thickening with pericholecystic fluid. We will monitor at this time. No CBD dilation. No gross evidence of significant gallstones. This may be reactive in nature secondary to her infection. The surgical service is closely following. At this time, I think supportive care is warranted. Thank you kindly for the consultation. [id number]/[facility] #: [id number] RUSS
--- NOTE | 2018-07-04 18:29 | PN ---
Subjective Date of Service: 07/04/18 Interval History: Pt seen and examined. Meds and labs reviewed. CC: Abd pain ROS: Denied WAY/dizziness, F/C, N/V, CP, SOB, increased cough, sputum production , abd pain, diarrhea, constipation, dysuria, myalgias, arthralgias, throat pain , and new skin lesions. The rest of the 14 point ROS are unremarkable. PHYSICAL EXAM: GEN APPEARANCE: Awake, not in acute distress HEENT: NC/AT, PERRLA, moist oral mucosa, (-) throat erythema NECK: Soft, supple, (-) cervical LAD, (-)JVD HEART: S1S2 WNL, RRR, No MRG CHEST: CTA, BL, GAE, No W/R/R ABD: Soft, diffusely tender abdomen/(-) rebound tenderness, hyperactive BS 4x Q EXT: No C/C/E SKIN: Warm to touch PSYCH: No active psychosis, hallucinations, depression, SI/HI Objective Active Medications: Acetaminophen (Tylenol Tab*) 650 mg PO Q4H PRN PRN Reason: PAIN OR TEMPERATURE Enoxaparin Sodium (Lovenox(*)) 40 mg SUBCUT Q24H [facility] Last Admin: 07/04/18 10:30 Dose: 40 mg Hydromorphone HCl (Dilaudid Inj1s*) 1 mg IV Q4H PRN PRN Reason: PAIN - SEVERE Last Admin: 07/04/18 17:05 Dose: 1 mg Lactated Ringer's (Lactated Ringers 1000 Ml Bag*) 1,000 mls @ 125 mls/hr IV PER RATE [facility] Last Admin: 07/04/18 12:22 Dose: 125 mls/hr Ciprofloxacin/Dextrose (Cipro 400 Mg Ivpremix(*)) 400 mg in 200 mls @ 200 mls/ hr IVPB Q12H [facility] Last Admin: 07/04/18 15:10 Dose: 200 mls/hr Ketorolac Tromethamine (Toradol Inj*) 30 mg IV Q6H PRN PRN Reason: PAIN Last Admin: 07/04/18 08:36 Dose: 30 mg Ondansetron HCl (Zofran Inj*) 4 mg IV Q6H PRN PRN Reason: NAUSEA/VOMITING Last Admin: 07/04/18 16:30 Dose: 4 mg Vital Signs - 8 hr 07/04/18 07/04/18 07/04/18 10:41 11:02 11:04 Temperature Pulse Rate 80 74 Respiratory 22 28 Rate Blood Pressure 105/65 (mmHg) O2 Sat by Pulse 99 99 Oximetry 07/04/18 07/04/18 07/04/18 11:36 12:00 12:01 Temperature Pulse Rate 75 73 Respiratory 20 19 27 Rate Blood Pressure 107/63 (mmHg) O2 Sat by Pulse 99 100 Oximetry 07/04/18 07/04/18 07/04/18 12:36 12:50 12:59 Temperature Pulse Rate 79 Respiratory 33 30 18 Rate Blood Pressure 101/62 (mmHg) O2 Sat by Pulse 100 Oximetry 07/04/18 07/04/18 07/04/18 13:00 13:23 13:33 Temperature 98.2 F Pulse Rate 77 Respiratory 16 24 Rate Blood Pressure 110/68 (mmHg) O2 Sat by Pulse 99 Oximetry 07/04/18 07/04/18 07/04/18 14:00 15:00 16:03 Temperature 99.9 F Pulse Rate 69 71 75 Respiratory 24 20 16 Rate Blood Pressure 115/70 94/51 114/72 (mmHg) O2 Sat by Pulse 99 98 100 Oximetry 07/04/18 17:05 Temperature Pulse Rate Respiratory 16 Rate Blood Pressure (mmHg) O2 Sat by Pulse Oximetry Oxygen Devices in Use Now: None Result Diagrams: 07/04/18 03:31 07/04/18 03:31 Microbiology and Other Data: Microbiology 07/03/18 16:07 Stool Culture - Preliminary Stool Salmonella Species Stool Gross Appearance - Final 07/04/18 11:25 Nasal Screen MRSA (PCR) - Final Nasal Mrsa Not Detected 07/04/18 09:20 Stool Gross Appearance - Final Stool C. difficile DNA Amplification - Final 027 Presumptive NEGATIVE Toxigenic C.diff NEGATIVE Stool Lactoferrin - Final Stool Occult Blood (LILIANA) - Final Rotavirus Antigen - Final Negative Rotavirus Assess/Plan/Problems-Billing Assessment: - Patient Problems (1) Salmonella gastroenteritis Current Visit: Yes Status: Acute Code(s): A02.0 - SALMONELLA ENTERITIS SNOMED Code(s): 62747695 Comment: -Stool culture ordered and sent early this AM (+) for Salmonella spp---will await speciation and sensitivity data -Will D/C Zosyn -Will empirically place on Ciprofloxacin -Imaging studies could either be a consequence of Salmonella w/c can lead to acalculous cholecystitis -D/W Dr. Esparza and his recommendation is continue above therapy (2) Abnormal liver diagnostic imaging Current Visit: Yes Status: Acute Code(s): R93.2 - ABNORMAL FINDINGS ON DX IMAGING OF LIVER AND BILIARY TRACT SNOMED Code(s): 712757171 Comment: -D/W Dr. 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
[2018-07-05] MEDS: Ciprofloxacin 400MG IVPREMIX(* 400 MG/200 ML BAG IVPB SCH ×2 (02:06→14:01)
[2018-07-05] MEDS: Ondansetron INJ* 2 MG/ML VIAL IV PRN ×2 (02:11→10:43)
[2018-07-05] MEDS ORDERED: Ondansetron INJ* 2 MG/ML VIAL IV ONE (03:25)
[2018-07-05 06:23] LABS: ABS Basophils 0 10^3/ul (0-0.2); ABS Eosinophils 0 10^3/ul (0-0.6); ABS Lymphocytes 2.1 10^3/ul (1.0-4.8); ABS Monocytes 0.4 10^3/ul (0-0.8); ABS Neutrophils 1.9 10^3/ul (1.5-7.7); ABS Nucleated RBC 0 10^3/ul; Eosinophil % 0.8 % (0-6); Hematocrit 34 % (35-47); Hemoglobin 11.8 g/dl (12.0-16.0); Lymphocyte % 47.6 % (25-47); Mean Corpuscular HGB Conc 35 g/dl (31-36); Mean Corpuscular Hemoglobin 28 pg (27-31); Mean Corpuscular Volume 80 fL (80-97); Mean Platelet Volume 9.1 um3 (7.4-10.4); Nucleated Red Blood Cells % 0.5; Platelet Count 129 10^3/ul (150-450); Red Blood Count 4.25 10^6/ul (4.00-5.40); Red Cell Distribution Width 12 % (10.5-15); White Blood Count 4.4 10^3/ul (3.5-10.8)
[2018-07-05 06:44] LABS: EGFR Non-African American 98.7 (>60)
[2018-07-05] MEDS: Enoxaparin(*) 40 MG/0.4 ML SYR SUBCUT SCH (08:03)
[2018-07-05] MEDS ORDERED: Magnesium Sulf 4 GM/100 ML IV* 4,000 MG/100 ML BAG IVPB ONE (09:00)
[2018-07-05] MEDS ORDERED: NS 0.9% 1000 ML* 1,000 ML IV SCH (09:00)
[2018-07-05] MEDS ORDERED: Sodium Phosphate INJ* 30 MMOLE in NS 0.9% 250 ML* 250 ML IVPB ONE (09:30)
[2018-07-05] MEDS: NS 0.9% 1000 ML* 1,000 ML IV SCH ×2 (10:30→21:45)
--- NOTE | 2018-07-05 10:45 | PN ---
Progress Note - Progress Note Date of Service: 07/05/18 SOAP: Subjective: Feels better this morning Less abdominal pain, still loose BM's Objective: Temp Pulse Resp BP Pulse Ox 98.4 F 58 18 98/54 100 07/05/18 07:55 07/05/18 07:55 07/05/18 07:55 07/05/18 08:09 07/05/18 07:55 PEX: Comfortable-awake and alert Abd is softer and less distended. Mild generalized pain-no rebound, guarding or mass. No localized pain Laboratory Results - last 24 hr 07/04/18 07/05/18 07/05/18 12:40 05:59 05:59 WBC 4.4 RBC 4.25 Hgb 11.8 L Hct 34 L MCV 80 MCH 28 MCHC 35 RDW 12 Plt Count 129 L MPV 9.1 Neut % (Auto) 42.7 Lymph % (Auto) 47.6 H Castro % (Auto) 8.6 H Eos % (Auto) 0.8 Baso % (Auto) 0.3 Absolute Neuts (auto) 1.9 Absolute Lymphs (auto) 2.1 Absolute Monos (auto) 0.4 Absolute Eos (auto) 0 Absolute Basos (auto) 0 Absolute Nucleated RBC 0 Nucleated RBC % 0.5 Sodium 136 Potassium 3.6 Chloride 109 Carbon Dioxide 22 Anion Gap 5 BUN 5 L Creatinine 0.71 Est GFR ( Amer) 119.5 Est GFR (Non-Af Amer) 98.7 BUN/Creatinine Ratio 7.0 L Glucose 106 H Calcium 8.3 L Phosphorus 1.6 L Magnesium 1.4 L Total Bilirubin 0.30 AST 25 ALT 22 Alkaline Phosphatase 31 L Total Creatine Kinase 75 Total Protein 5.6 L Albumin 2.9 L Globulin 2.7 Albumin/Globulin Ratio 1.1 Salmonella Positive stool Assessment: Salmonella enteritis-diarrhea I think edema of gallbladder wall is secondary to GI infection and will improve with treatment-on Cipro now Plan: Advance diet as tolerated Ciprofloxacin Will continue to follow Discussed with Dr. Cooley yesterday.
--- NOTE | 2018-07-05 13:53 | PN ---
Subjective Date of Service: 07/05/18 Interval History: Pt seen and examined. Meds and labs reviewed. Pt mentions she feels much better. CC: N/A ROS: Denied WAY/dizziness, F/C, N/V, CP, SOB, increased cough, sputum production , abd pain, diarrhea, constipation, dysuria, myalgias, arthralgias, throat pain , and new skin lesions. The rest of the 14 point ROS are unremarkable. PHYSICAL EXAM: GEN APPEARANCE: Awake, not in acute distress HEENT: NC/AT, PERRLA, moist oral mucosa, (-) throat erythema NECK: Soft, supple, (-) cervical LAD, (-)JVD HEART: S1S2 WNL, RRR, No MRG CHEST: CTA, BL, GAE, No W/R/R ABD: Soft, ND/mild tenderness in on deep palpation, epigastrium, NABS 4x Q EXT: No C/C/E SKIN: Warm to touch PSYCH: No active psychosis, hallucinations, depression, SI/HI Objective Active Medications: Acetaminophen (Tylenol Tab*) 650 mg PO Q4H PRN PRN Reason: PAIN OR TEMPERATURE Enoxaparin Sodium (Lovenox(*)) 40 mg SUBCUT Q24H [facility] Last Admin: 07/05/18 08:03 Dose: 40 mg Hydromorphone HCl (Dilaudid Inj1s*) 1 mg IV Q4H PRN PRN Reason: PAIN - SEVERE Last Admin: 07/04/18 22:04 Dose: 1 mg Ciprofloxacin/Dextrose (Cipro 400 Mg Ivpremix(*)) 400 mg in 200 mls @ 200 mls/ hr IVPB Q12H [facility] Last Admin: 07/05/18 02:06 Dose: 200 mls/hr Sodium Chloride (Ns 0.9% 1000 Ml*) 1,000 mls @ 125 mls/hr IV PER RATE [facility] Stop: 07/06/18 16:59 Last Admin: 07/05/18 10:30 Dose: 125 mls/hr Sodium Phosphate 30 mmole/ (Sodium Chloride) 260 mls @ 42 mls/hr IVPB ONCE ONE Stop: 07/05/18 15:41 Ketorolac Tromethamine (Toradol Inj*) 30 mg IV Q6H PRN PRN Reason: PAIN Last Admin: 07/04/18 08:36 Dose: 30 mg Ondansetron HCl (Zofran Inj*) 4 mg IV Q6H PRN PRN Reason: NAUSEA/VOMITING Last Admin: 07/05/18 10:43 Dose: 4 mg Promethazine HCl (Phenergan Tab*) 25 mg PO Q8H PRN PRN Reason: NAUSEA Vital Signs - 8 hr 07/05/18 07/05/18 07/05/18 07:55 08:09 11:32 Temperature 98.4 F Pulse Rate 58 Respiratory 18 16 Rate Blood Pressure 86/55 98/54 (mmHg) O2 Sat by Pulse 100 Oximetry 07/05/18 11:37 Temperature 97.6 F Pulse Rate 63 Respiratory 18 Rate Blood Pressure 109/71 (mmHg) O2 Sat by Pulse 100 Oximetry Oxygen Devices in Use Now: None Result Diagrams: 07/05/18 05:59 07/05/18 05:59 Microbiology and Other Data: Microbiology 07/03/18 16:07 Stool Culture - Preliminary Stool Salmonella Species Stool Gross Appearance - Final 07/04/18 11:25 Nasal Screen MRSA (PCR) - Final Nasal Mrsa Not Detected 07/04/18 09:20 Stool Gross Appearance - Final Stool C. difficile DNA Amplification - Final 027 Presumptive NEGATIVE Toxigenic C.diff NEGATIVE Stool Lactoferrin - Final Stool Occult Blood (LILIANA) - Final Rotavirus Antigen - Final Negative Rotavirus Assess/Plan/Problems-Billing Assessment: - Patient Problems (1) Salmonella gastroenteritis Current Visit: Yes Status: Acute Code(s): A02.0 - SALMONELLA ENTERITIS SNOMED Code(s): 92580398 Comment: -Stool culture ordered and sent early this AM (+) for Salmonella spp---will await speciation and sensitivity data -Will empirically place on Ciprofloxacin -Imaging studies could be a consequence of Salmonella w/c can lead to acalculous cholecystitis -Continue above therapy for 7 days---will touch base with Dr. 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 Clement and is a non-specific finding of hepatitis, however, LFTs are normal and likely an non-specific incidental finding -Sent hepatitis screen (-); likely an incidental finding or a transient effect due to above (3) DVT prophylaxis Current Visit: Yes Status: Acute Code(s): KLI1055 - SNOMED Code(s): 033734221 Comment: -Continue Lovenox SQ Status and Disposition: -Possible D/C in AM
[2018-07-05] MEDS: Promethazine TAB* 25 MG PO PRN (15:12)
[2018-07-05] MEDS: HYDROmorphone INJ1* 1 MG/ML SYRINGE IV PRN (15:13)
[2018-07-06] MEDS: Ciprofloxacin 400MG IVPREMIX(* 400 MG/200 ML BAG IVPB SCH ×2 (01:57→13:57)
[2018-07-06] MEDS: HYDROmorphone INJ1* 1 MG/ML SYRINGE IV PRN (05:25)
[2018-07-06 06:53] LABS: Hematocrit 33 % (35-47); Hemoglobin 11.5 g/dl (12.0-16.0); Mean Corpuscular HGB Conc 34 g/dl (31-36); Mean Corpuscular Hemoglobin 28 pg (27-31); Mean Corpuscular Volume 81 fL (80-97); Mean Platelet Volume 9.1 um3 (7.4-10.4); Platelet Count 150 10^3/ul (150-450); Red Blood Count 4.14 10^6/ul (4.00-5.40); Red Cell Distribution Width 12 % (10.5-15); White Blood Count 3.9 10^3/ul (3.5-10.8)
[2018-07-06 07:09] LABS: EGFR Non-African American 100.4 (>60)
[2018-07-06 07:43] LABS: ABS Basophils 0 10^3/ul (0-0.2); ABS Eosinophils 0.1 10^3/ul (0-0.6); ABS Lymphocytes 2.5 10^3/ul (1.0-4.8); ABS Monocytes 0.3 10^3/ul (0-0.8); ABS Neutrophils 1.1 10^3/ul (1.5-7.7); ABS Nucleated RBC 0 10^3/ul; Eosinophil % 1.5 % (0-6); Nucleated Red Blood Cells % 0.3
[2018-07-06] MEDS ORDERED: Magnesium Sulf 4 GM/100 ML IV* 4,000 MG/100 ML BAG IVPB ONE (09:50)
[2018-07-06] MEDS: Enoxaparin(*) 40 MG/0.4 ML SYR SUBCUT SCH (10:09)
--- NOTE | 2018-07-06 13:29 | CONS ---
DATE OF CONSULTATION: 07/06/2018. REQUESTING PHYSICIAN: Dr. Camacho. CONSULTING SERVICE: Infectious Disease. REASON FOR CONSULTATION: Salmonella enteritis. IMPRESSION: 1. Salmonella enteritis, improving. 2. Radiographic findings of acalculous cholecystitis without abnormal liver function test and rapid improvement in her epigastric pain without any right upper quadrant pain. I think more likely secondary to gut infection, less likely direct salmonella infection and acalculous cholecystitis. RECOMMENDATIONS: Day two of seven of antibiotics. Zosyn would cover it as would the Cipro. We discussed that there is a slight increased risk of long- term colonization of salmonella due to antibiotic use for it, but it should not limit her future activities as long as she is able to toilet and keep her hands washed after doing so. HISTORY OF PRESENT ILLNESS: This 28-year-old woman admitted with abdominal pain , diarrhea, and fevers that came on suddenly the end of last week. She had some mucousy frequent loose stools. Stool culture on the 7th was growing salmonella. Cryptosporidium and Giardia antigens are negative. C. diff is negative. She had an initial fever of 39.5 which has since resolved. She is on Zosyn for two days now and then on Cipro for a day. She is having soft stools instead of loose now without any blood or mucous. They are still fairly frequent. She has been followed by GI and surgery because the CT and ultrasound showed some gallbladder wall thickening, cholecystitis fluid and gallbladder sludge. She does not have any right upper quadrant tenderness or pain today. She is keeping on fluids. PAST MEDICAL HISTORY: Depression. MEDICATIONS: 1. Cipro 400 mg every 12 hours. 2. Enoxaparin. 3. Ketoralac as needed. 4. Promethazine as needed. 5. Zofran as needed. ALLERGIES: No known drug allergies. FAMILY HISTORY: There are no recurrent infections. 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 There and here she is in contact with a variety of animals, including reptiles and amphibians. She has no sick contacts here. REVIEW OF SYSTEMS: All negative, except as noted above to 14 point review of systems. PHYSICAL EXAM: General: She is awake, not in distress. Vital Signs: Temperature 37, heart rate 60, respiratory rate 17, blood pressure 102/59, oxygen saturation 100 percent on room air. Neurologic: She is oriented times three. Follows all commands. HEENT: There is no conjunctival hemorrhage. Oropharynx without lesions. Neck: Supple without mass. Heart: Regular rate and rhythm without murmurs, rubs, or gallops. Lungs: Clear to auscultation bilaterally. Abdomen: There are bowel sounds present. There is epigastric tenderness to palpations. There is no right upper quadrant tenderness to palpation. There is no rebound tenderness. Skin: There is no rash or splinter hemorrhage. Musculoskeletal: There is no spine tenderness to palpation. LABORATORY DATA: White blood cell count 3.9, hemoglobin 11, platelets 150, creatinine 0.7. Please see impressions and recommendations as outlined above. Thank you for asking me to see Ms. Reyes in consultation. [id number]/[facility] #: [id number] RUSS
[2018-07-06] MEDS: Ketorolac INJ* 30 MG/ML 1 ML VIAL IV PRN (14:12)
[2018-07-06] MEDS: Promethazine TAB* 25 MG PO PRN (14:48)
[2018-07-06] MEDS ORDERED: traMADol TAB* 50 MG PO PRN (15:51)
[2018-07-06] MEDS: Ondansetron INJ* 2 MG/ML VIAL IV PRN (16:12)
--- NOTE | 2018-07-06 17:43 | PN ---
Subjective Date of Service: 07/06/18 Interval History: Pt seen and examined. Meds and labs reviewed. Pt mentions she feels better than yesterday, where she mentioned despite feeling better, she would need to go to the bathroom almost every hour to pass loose stools. She mentioned she only had one early in the morning. Later in the afternoon, pt complained of some sudden abd pain and some nausea. CC: Abd pain, improved; nausea ROS: Denied WAY/dizziness, F/C, vomiting, CP, SOB, increased cough, sputum production, abd pain, diarrhea, constipation, dysuria, myalgias, arthralgias, throat pain, and new skin lesions. The rest of the 14 point ROS are unremarkable. PHYSICAL EXAM: GEN APPEARANCE: Awake, not in acute distress HEENT: NC/AT, PERRLA, moist oral mucosa, (-) throat erythema NECK: Soft, supple, (-) cervical LAD, (-)JVD HEART: S1S2 WNL, RRR, No MRG CHEST: CTA, BL, GAE, No W/R/R ABD: Soft, ND/mild tenderness in on deep palpation, epigastrium, NABS 4x Q EXT: No C/C/E SKIN: Warm to touch PSYCH: No active psychosis, hallucinations, depression, SI/HI Objective Active Medications: Acetaminophen (Tylenol Tab*) 650 mg PO Q4H PRN PRN Reason: PAIN OR TEMPERATURE Enoxaparin Sodium (Lovenox(*)) 40 mg SUBCUT Q24H [facility] Last Admin: 07/06/18 10:09 Dose: Not Given Hydromorphone HCl (Dilaudid Inj1s*) 1 mg IV Q4H PRN PRN Reason: PAIN - SEVERE Last Admin: 07/06/18 05:25 Dose: 1 mg Ciprofloxacin/Dextrose (Cipro 400 Mg Ivpremix(*)) 400 mg in 200 mls @ 200 mls/ hr IVPB Q12H [facility] Last Admin: 07/06/18 13:57 Dose: 200 mls/hr Ketorolac Tromethamine (Toradol Inj*) 30 mg IV Q6H PRN PRN Reason: PAIN Last Admin: 07/06/18 14:12 Dose: 30 mg Ondansetron HCl (Zofran Inj*) 4 mg IV Q6H PRN PRN Reason: NAUSEA/VOMITING Last Admin: 07/06/18 16:12 Dose: 4 mg Promethazine HCl (Phenergan Tab*) 25 mg PO Q8H PRN PRN Reason: NAUSEA Last Admin: 07/06/18 14:48 Dose: 25 mg Tramadol HCl (Ultram*) 100 mg PO Q6H PRN PRN Reason: PAIN Last Admin: 07/06/18 16:04 Dose: 100 mg Vital Signs - 8 hr 07/06/18 07/06/18 07/06/18 11:58 15:47 16:04 Temperature 98.1 F Pulse Rate 56 50 Respiratory 17 15 16 Rate Blood Pressure 102/59 105/66 (mmHg) O2 Sat by Pulse 100 100 Oximetry 07/06/18 16:07 Temperature 97.7 F Pulse Rate Respiratory Rate Blood Pressure (mmHg) O2 Sat by Pulse Oximetry Oxygen Devices in Use Now: None Result Diagrams: 07/06/18 06:44 07/06/18 06:44 Microbiology and Other Data: Microbiology 07/03/18 16:07 Stool Culture - Preliminary Stool Salmonella Species Stool Gross Appearance - Final 07/04/18 11:25 Nasal Screen MRSA (PCR) - Final Nasal Mrsa Not Detected 07/04/18 09:20 Stool Gross Appearance - Final Stool C. difficile DNA Amplification - Final 027 Presumptive NEGATIVE Toxigenic C.diff NEGATIVE Stool Lactoferrin - Final Stool Occult Blood (LILIANA) - Final Rotavirus Antigen - Final Negative Rotavirus Assess/Plan/Problems-Billing Assessment: - Patient Problems (1) Salmonella gastroenteritis Current Visit: Yes Status: Acute Code(s): A02.0 - SALMONELLA ENTERITIS SNOMED Code(s): 46092155 Comment: -Given significant amount of diarrhea recently along with bouts of abd pain and nausea, will continue to observe o/n for possible D/C in AM if pts diarrhea significantly improves along with her abd pain and nausea -D/W Dr. Thompson and appreciate input; Day #2/7 of Ciprofloxacin -Pt advise to wash hands and observe hygiene when d/cd -Stool culture ordered and sent early this AM (+) for Salmonella spp---will await speciation and sensitivity data -Imaging studies could be a consequence of Salmonella w/c can lead to acalculous cholecystitis -Continue above therapy for 7 days---will touch base with Dr. 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 Clement and is a non-specific finding of hepatitis, however, LFTs are normal and likely an non-specific incidental finding -Sent hepatitis screen (-); likely an incidental finding or a transient effect due to above (3) DVT prophylaxis Current Visit: Yes Status: Acute Code(s): FXR5693 - SNOMED Code(s): 236788924 Comment: -Continue Lovenox SQ Status and Disposition: -Possible D/C in AM
[2018-07-07] MEDS: Ciprofloxacin 400MG IVPREMIX(* 400 MG/200 ML BAG IVPB SCH (01:51)
[2018-07-07] MEDS: Enoxaparin(*) 40 MG/0.4 ML SYR SUBCUT SCH (09:49)
[2018-07-07 11:31] VITALS: BP 111/78
--- NOTE | 2018-07-07 23:17 | DS ---
CC: [facility] * DISCHARGE SUMMARY: DATE OF ADMISSION: 07/04/18 DATE OF DISCHARGE: 07/07/18 FINAL DISCHARGE DIAGNOSES: 1. Salmonella gastroenteritis. 2. Diarrhea with abdominal pain secondary to the gastroenteritis. 3. Hypomagnesemia secondary to her diarrhea. HOSPITAL COURSE: This is a 28-year-old female who was admitted on 07/04/18, to [facility] for abdominal pain, fever associated with diarrhea, cramping. She had a temperature of 102.4 on admission with mucousy diarrhea. She had a recent travel. Within her presentation, she was in the [place] on vacation, spent about a month and she works in Veterinary Medicine at the [employer]. On presentation, her initial workup reveals normal white count of 5.9 with slightly decreased potassium 3.1, normal renal function. The patient was admitted. Initial workup was thought to be due to acute cholecystitis versus inflammatory bowel disease. She was started on IV antibiotics with Zofran. She was pancultured including stool studies. On day # 2, on 07/05/18, her stool study revealed Salmonella. Remaining were unremarkable. She was switched to Cipro IV and she continued to improve over the course of following days and today she was seen and evaluated by me. She seems stable for discharge, tolerating p.o. well, reports significant improvement in her diarrhea and her abdominal pain, and she was eager to go home. PHYSICAL EXAMINATION: Vitals: 98.3, pulse 56, respiratory rate 16, satting 100 %. General: She is awake, alert, oriented, pleasant, in no apparent distress. Head and Neck: Normocephalic, atraumatic. Anicteric sclerae. No pallor. No JVD. Lungs: Clear to auscultation bilaterally. No crackles, rales, or wheezes. Cardiovascular: S1, S2. Regular rate and rhythm. Abdomen: Positive bowel sounds. Soft, nontender, nondistended. There is no rebound, no guarding. Extremities: No pedal edema. [employer]: No motor or focal sensory deficits. Moving all extremities x4. DIAGNOSTIC STUDIES/LAB DATA: Microbiology negative for Cryptosporidium, negative for Legionella, negative for C. diff, negative for rotavirus, positive for Salmonella. Abdominal CT shows thickened gallbladder wall. This was followed with an ultrasound, which did not show any evidence of cholecystitis. Chest x-ray: No acute disease. CONSULTATION: With Infectious Disease, Dr. Thompson. DISCHARGE MEDICATIONS: 1. Tylenol p.r.n. for the pain. 2. Cipro 500 mg b.i.d. for additional 7 days to complete a total 10 days course of antibiotic. Continue home medications: 1. Biotin 1000 mcg daily. 2. Lactobacillus daily. 3. Multivitamin daily. 4. Fish oil 1000 daily. DISCHARGE INSTRUCTIONS AND RECOMMENDATIONS: Follow up with PCP and she was set up with [facility]. The patient is to call in 1 to 2 weeks and she was also given connection to the [facility] in 1 to 2 weeks. The patient to adhere to low-fat, low-residue diet for 2 weeks, then resume regular diet afterward. If she develops any fever, recurrence of her symptoms, diarrhea to seek immediate medical attention. [id number]/[facility] #: [id number] RUSS
== END 2018-07-07 13:45 | disposition home or self-care (01) | DRG 373 ==
LOC: ED 13:56 → SSU 07-04 01:08 → ICU 07-04 04:13 → OBSVTOIN 07-04 04:32 → MED 07-04 16:43
PROVIDERS: ADMIT Surgery; ATTEND Internal Medicine
DX: A02.0 Salmonella enteritis (principal); F41.9 Anxiety disorder, unspecified; F32.9 Major depressive disorder, single episode, unspecified; K82.8 Other specified diseases of gallbladder; E86.0 Dehydration; R94.5 Abnormal results of liver function studies; E83.42 Hypomagnesemia; Z80.0 Family history of malignant neoplasm of digestive organs; Z72.89 Other problems related to lifestyle; Z80.42 Family history of malignant neoplasm of prostate; Z82.0 Family history of epilepsy and other diseases of the nervous system; Z87.891 Personal history of nicotine dependence; Z83.79 Family history of other diseases of the digestive system
CPT/HCPCS: 36415; 71046; 74177; 76705; 76775; 80048; 80053; 80074; 80076; 81003; 81015; 82150; 82270; 82550; 83605; 83630; 83690; 83735; 84100; 84145; 84702; 85025; 85652; 86140; 86705; 86709; 87040; 87045; 87046; 87077; 87086; 87177; 87209; 87328; 87329; 87340; 87425; 87493; 87641; 87899; 93005; 96374; 96375; 99285; A9270-GY; J0744; J1170; J1650; J1885; J2270; J2405; J2543; J3010; J3475; Q9967

== ENCOUNTER 2018-07-24 19:40 | Emergency (ER) | payer OTHER ==
[2018-07-24 21:03] LABS: Hematocrit 39 % (35-47); Hemoglobin 13.2 g/dl (12.0-16.0); Mean Corpuscular HGB Conc 34 g/dl (31-36); Mean Corpuscular Hemoglobin 27 pg (27-31); Mean Corpuscular Volume 81 fL (80-97); Mean Platelet Volume 9.5 um3 (7.4-10.4); Platelet Count 210 10^3/ul (150-450); Red Blood Count 4.85 10^6/ul (4.00-5.40); Red Cell Distribution Width 13 % (10.5-15); White Blood Count 5.5 10^3/ul (3.5-10.8)
[2018-07-24 21:21] LABS: EGFR Non-African American 92.7 (>60)
[2018-07-24 21:53] LABS: ABS Basophils 0 10^3/ul (0-0.2); ABS Eosinophils 0.1 10^3/ul (0-0.6); ABS Lymphocytes 3.5 10^3/ul (1.0-4.8); ABS Monocytes 0.3 10^3/ul (0-0.8); ABS Neutrophils 1.5 10^3/ul (1.5-7.7); ABS Nucleated RBC 0 10^3/ul; Eosinophil % 1.2 % (0-6); Lymphocyte % 64.7 % (25-47); Nucleated Red Blood Cells % 0.3
[2018-07-24] MEDS ORDERED: Morphine INJ* 4 MG/ML 1 ML SYRINGE (NEW SYRINGE VERSION) IV ONE (23:17)
[2018-07-24] MEDS ORDERED: Metoclopramide IV* 5 MG/ML 2 ML VIAL IV SLOW PU ONE (23:17)
[2018-07-24] MEDS ORDERED: NS 0.9% 1000 ML* 1,000 ML IV ONE (23:18)
--- NOTE | 2018-07-25 01:23 | RAD ---
EXAM: US Abdomen Limited, Right Upper Quadrant CLINICAL HISTORY: 28 years old, female; Pain; Abdominal pain; Localized; Right upper quadrant (ruq); Additional info: Abd pain TECHNIQUE: Real-time ultrasound of the right upper quadrant with image documentation. COMPARISON: GB US GALL BLADDER 07/03/2018 11:25 PM FINDINGS: Liver: No mass. No intrahepatic bile duct dilation. Persistent hyper echogenicity of the hepatic portal triads which can be seen with hepatitis. She Gallbladder: No shadowing gallstones. A small amount of gallbladder sludge is partially imaged. Decreased gallbladder wall thickness since prior study, measuring 2 mm today. Common bile duct: The common bile duct measures 0.4 cm. No stones. No dilation. Pancreas: Unremarkable as visualized. Right kidney: The right kidney measures 10.9 x 5.0 x 4.1 cm. No stones. No hydronephrosis. IMPRESSION: 1. No acute findings. No shadowing gallstones. Of note, the layering sludge, seen in the gallbladder on prior study, is not well-visualized today. 2. Decreased gallbladder wall thickness since prior study. 3. Findings again suggestive of hepatitis. Correlate with LFTs.
[2018-07-25 02:10] VITALS: BP 105/64
--- NOTE | 2018-07-25 02:31 | ED ---
Abdominal Pain/Female - HPI Summary HPI Summary: Patient is a 28 y/o F w/ c/o RUQ pain onsetting today at 1400. She denies fever , vomiting but reports ongoing diarrhea for the past few weeks. She reports x4 bowel movements today. Patient was seen in [facility] a month ago and diagnosed with gallbladder sludge and hepatitis. Current Sx are noted to be similar as prior episode. On triage, pain is rated 7/10 and nothing is noted to aggravate/ alleviate Sx. She reports having plain pasta and meatballs for lunch today. Home medications and allergies are reviewed. - History of Current Complaint Chief Complaint: EDAbdPain Stated Complaint: ABD PAIN Time Seen by Provider: 07/24/18 23:06 Hx Obtained From: Patient Hx Last Menstrual Period: 01/14/16 Continuous control Onset/Duration: Lasting Hours - onset today at 1400 today, Lasting Weeks - diarrhea, Still Present Timing: Constant - RUQ pain Severity Currently: Severe - 7/10 Pain Intensity: 7 Pain Scale Used: 0-10 Numeric - 7/10 Location: Discrete At: RUQ Aggravating Factor(s): Nothing Alleviating Factor(s): Nothing Associated Signs and Symptoms: Positive: Diarrhea. Negative: Fever, Vomiting Allergies/Adverse Reactions: Allergies Allergy/AdvReac Type Severity Reaction Status Date / Time No Known Allergies Allergy Verified 07/03/18 14:01 PMH/Surg Hx/FS Hx/Imm Hx Endocrine/Hematology History: Denies: Hx Anticoagulant Therapy, Hx Diabetes, Hx Thyroid Disease, Hx Anemia , Hx Unexplained Bleeding Cardiovascular History: Denies: Hx Hypertension Respiratory History: Denies: Hx Asthma, Hx Chronic Obstructive Pulmonary Disease (COPD) GI History: Denies: Hx Ulcer History: Denies: Hx Dialysis, Hx Renal Disease Sensory History: Denies: Hx Contacts or Glasses, Hx Legally Blind, Hx Deafness, Hx Hearing Aid Opthamlomology History: Denies: Hx Contacts or Glasses, Hx Legally Blind Neurological History: Reports: Other Neuro Impairments/Disorders - Grandmother is senile, family member has MS Denies: Hx Dementia Psychiatric History: Reports: Hx Anxiety, Hx Depression - Immunization History Date of Tetanus Vaccine: within 8 years per pt Infectious Disease History: No Infectious Disease History: Reports: Hx Shingles Denies: Hx Clostridium Difficile, Hx Hepatitis, Hx Human Immunodeficiency Virus (HIV), History Other Infectious Disease, Traveled Outside the [place] in Last 30 Days - Family History Known Family History: Positive: Other - colon cancer, ulcers - Social History Alcohol Use: None Substance Use Type: Reports: None Smoking Status (MU): Never Smoked Tobacco Review of Systems Negative: Fever Positive: Abdominal Pain - RUQ pain , Diarrhea. Negative: Vomiting All Other Systems Reviewed And Are Negative: Yes Physical Exam - Summary Physical Exam Summary: VITAL SIGNS: Reviewed. GENERAL: Patient is a well-developed and nourished female who is lying comfortable in the stretcher. Patient is not in any acute respiratory distress. HEAD AND FACE: No signs of trauma. No ecchymosis, hematomas or skull depressions. No sinus tenderness. EYES: PERRLA, EOMI x 2, No injected conjunctiva, no nystagmus. EARS: Hearing grossly intact. Ear canals and tympanic membranes are within normal limits. MOUTH: Oropharynx within normal limits. NECK: Supple, trachea is midline, no adenopathy, no JVD, no carotid bruit, no c- spine tenderness, neck with full ROM. CHEST: Symmetric, no tenderness at palpation LUNGS: Clear to auscultation bilaterally. No wheezing or crackles. CVS: Regular rate and rhythm, S1 and S2 present, no murmurs or gallops appreciated. ABDOMEN: Soft, epigastric/RUQ tenderness. No signs of distention. No rebound no guarding, and no masses palpated. Bowel sounds are hyperactive. EXTREMITIES: FROM in all major joints, no edema, no cyanosis or clubbing. NEURO: Alert and oriented x 3. No acute neurological deficits. Speech is normal and follows commands. SKIN: Dry and warm Triage Information Reviewed: Yes Vital Signs On Initial Exam: Initial Vitals Temp Pulse Resp BP Pulse Ox 98.6 F 66 16 132/77 99 07/24/18 19:49 07/24/18 19:49 07/24/18 19:49 07/24/18 19:49 07/24/18 19:49 Vital Signs Reviewed: Yes Diagnostics - Vital Signs Vital Signs Temp Pulse Resp BP Pulse Ox 07/25/18 02:09 97.8 F 59 18 105/64 100 07/25/18 02:00 63 07/25/18 01:43 53 102/61 99 07/25/18 01:13 60 105/61 98 07/25/18 01:00 61 98 07/25/18 00:43 65 93/47 98 07/25/18 00:25 86 96 07/25/18 00:00 60 100 07/24/18 23:58 16 07/24/18 23:44 61 124/69 100 07/24/18 23:14 57 125/71 100 07/24/18 21:51 98.3 F 63 16 119/69 100 07/24/18 19:49 98.6 F 66 16 132/77 99 - Laboratory Lab Results: Lab Results 07/24/18 07/24/18 07/24/18 Range/Units 20:56 20:56 20:56 WBC 5.5 (3.5-10.8) 10^3/ul RBC 4.85 (4.00-5.40) 10^6/ul Hgb 13.2 (12.0-16.0) g/dl Hct 39 (35-47) % MCV 81 (80-97) fL MCH 27 (27-31) pg MCHC 34 (31-36) g/dl RDW 13 (10.5-15) % Plt Count 210 (150-450) 10^3/ul MPV 9.5 (7.4-10.4) um3 Neut % (Auto) 28.4 L (38-83) % Lymph % (Auto) 64.7 H (25-47) % [place] % (Auto) 4.9 (0-7) % Eos % (Auto) 1.2 (0-6) % Baso % (Auto) 0.8 (0-2) % Absolute Neuts (auto) 1.5 (1.5-7.7) 10^3/ul Absolute Lymphs (auto) 3.5 (1.0-4.8) 10^3/ul Absolute Monos (auto) 0.3 (0-0.8) 10^3/ul Absolute Eos (auto) 0.1 (0-0.6) 10^3/ul Absolute Basos (auto) 0 (0-0.2) 10^3/ul Absolute Nucleated RBC 0 10^3/ul Nucleated RBC % 0.3 Sodium 135 (135-145) mmol/L Potassium 3.6 (3.5-5.0) mmol/L Chloride 105 (101-111) mmol/L Carbon Dioxide 22 (22-32) mmol/L Anion Gap 8 (2-11) mmol/L BUN 11 (6-24) mg/dL Creatinine 0.75 (0.51-0.95) mg/dL Est GFR ( Amer) 112.2 (>60) Est GFR (Non-Af Amer) 92.7 (>60) BUN/Creatinine Ratio 14.7 (8-20) Glucose 88 (70-100) mg/dL Lactic Acid 0.4 L (0.5-2.0) mmol/L Calcium 9.2 (8.6-10.3) mg/dL Total Bilirubin 0.50 (0.2-1.0) mg/dL AST 17 (13-39) U/L ALT 16 (7-52) U/L Alkaline Phosphatase 29 L (34-104) U/L C-Reactive Protein 1.07 (<8.01) mg/L Total Protein 6.9 (6.4-8.9) g/dL Albumin 3.9 (3.2-5.2) g/dL Globulin 3.0 (2-4) g/dL Albumin/Globulin Ratio 1.3 (1-3) Lipase 19 (11.0-82.0) U/L Beta HCG, Quant < 0.60 mIU/mL Result Diagrams: 07/24/18 20:56 07/24/18 20:56 Lab Statement: Any lab studies that have been ordered have been reviewed, and results considered in the medical decision making process. - Ultrasound No standard instances Ultrasound Interpretation: No Acute Changes Ultrasound Interpretation Completed By: Radiologist - Gallbladder us: IMPRESSION: 1. No acute findings. No shadowing gallstones. Of note, the layering sludge, seen in the gallbladder on prior study, is not well- visualized today. 2. Decreased gallbladder wall thickness since prior study. 3. Findings again suggestive of hepatitis. Correlate with LFTs. This report was reviewed by ED physician Re-Evaluation - Re-Evaluation First Eval Re-Evaluation Time: 01:45 Change: Improved Comment: Patient reports that she is feeling better. Discussed results of labs and ultrasound with patient. She will be discharged to home and follow up with PCP in 1-2 days. Patient understands and is agreeable with this plan. Abdominal Pain Fem Course/Dx - Course Course Of Treatment: Patient is a 28 y/o F w/ c/o RUQ pain onsetting today at 1400. She denies fever, vomiting but reports ongoing diarrhea for the past few weeks. She reports x4 bowel movements today. Patient was seen in [facility] a month ago and diagnosed with gallbladder sludge and hepatitis. Current Sx are noted to be similar as prior episode. On triage, pain is rated 7/10 and nothing is noted to aggravate/alleviate Sx. Physical exam showed epigastric/RUQ tenderness , hyperactive bowel sounds. During ED course, patient received reglan 10 mg IV SLOW PU, morphine 4 mg IV ED ONCE, and fluids. Labs showed lipase 19, alkaline 29, lactic acid .4. Discussed results of labs and ultrasound with patient. She will be discharged to home and follow up with PCP in 1-2 days. Patient understands and is agreeable with follow up plan. Dx of gastritis. - Diagnoses Provider Diagnoses: Gastritis Discharge - Sign-Out/Discharge Documenting (check all that apply): Patient Departure - discharge - Discharge Plan Condition: Stable Disposition: HOME Prescriptions: Pantoprazole TAB (NF) [Protonix TAB (NF)] 40 mg PO DAILY #30 tab Patient Education Materials: Gastritis (ED) Referrals: [facility] [Outside] - 2 Days Additional Instructions: RETURN TO THE EMERGENCY DEPARTMENT FOR CHANGING OR WORSENING SYMPTOMS. FOLLOW UP WITH PRIMARY CARE PHYSICIAN IN 1-2 DAYS. - Attestation Statements Document Initiated by Scribe: Yes Documenting Scribe: Konstantin Macedo Provider For Whom Scribe is Documenting (Include Credential): Masoud Aguayo MD Scribe Attestation: IKonstantin , scribed for Masoud Aguayo MD on 07/25/18 at 0241.
== END 2018-07-25 02:09 | disposition home or self-care (01) ==
LOC: ED 19:40
DX: R10.11 Right upper quadrant pain (principal); K29.70 Gastritis, unspecified, without bleeding
CPT/HCPCS: 36415; 76705; 80053; 83605; 83690; 84702; 85025; 86140; 96374; 96375; 99283; J2270; J2765